=== PATIENT | female | born 1935 | race Caucasian/White ===

== ENCOUNTER 2016-10-19 03:14 | Inpatient (IN) | payer MEDICARE, OTHER ==
[2016-10-19] VITALS (11 sets, daily range): BP systolic 132–151; BP diastolic 71–85; PULSE 71–120; RESP 20–22; O2SAT 86–97
[~2016-10-19] VITALS: Ht 167.6 cm; Wt 60.9 kg
[2016-10-19] MEDS ORDERED: HYDR25TA4 PO (04:27)
--- NOTE | 2016-10-19 04:35 | NUR ---
Admission Note Pt admitted to [facility] AT 0355 from [facility], alert and orientedx3, states SOB, cough,nonproductive, denies any pain/N/V/chills, low grade fever 37.7 at [facility] per RN report, now resolved. BP145/85 HR90 RR20 SPO2 95% on O2 2l, T36.7. Moderately decreased lung sounds, coarse bilaterally, HR 85 regular, no murmur. Abdomen soft,non tender. Call light oriented to pt. Pt ambulated to BR void (Missing the container,need UA), mild weakness, denies dizziness,vertigo. Night MD Fischer paged about pt arrival, waiting for order.
[2016-10-19] MEDS ORDERED: Ondansetron 2 mg/mL 2 mL Inj IVPUSH PRN (04:40)
[2016-10-19] MEDS ORDERED: Alum-Mag Hydrox-Simeth 30 mL Suspension PO PRN (04:40)
[2016-10-19] MEDS ORDERED: Polyethylene Glycol (PEG) 17 Gm Powder PO PRN (04:40)
[2016-10-19] MEDS ORDERED: Albuterol-Ipratropium 3 mL Inhalation Solution NEB PRN (04:55)
[2016-10-19] MEDS ORDERED: Albuterol 2.5 mg/3 mL Inhalation Solution NEB PRN (04:55)
--- NOTE | 2016-10-19 05:23 | ABG ---
DateTimeAnalyzed 05:19:00 -_ pH ____7.385 - 7.350 7.450 pCO2 ___44.3__ -mmHg 35.0 45.0 pO2 ___65.6__ -mmHg 70.0 100 HCO3- ___25.9__ -mmol/L 22.0 26.0 ABE ____1.1__ -mmol/L -2.0 2.0 tHb ___12.7__ -g/dL 12.0 18.0 O2Hb ___89.8__ -% 95.0 COHb ____1.1__ -% 1.5 MetHb ____1.0__ -% 0.4 1.5 sO2 ___91.7__ -% FIO2 ___21.0__ -% Drawn By MD - Date/Time Notified____ 05:23:00 -_ Liter_Flow ____2.0__ -L/min Oxygen Device 1 __CANNULA - Notified By MD - Notified Whom __RN CORTÉS - B 756 -mmHg tO2 ___16.0__ -Vol% Cleve test _Positive -
[2016-10-19] MEDS: 0.9% Sodium Chloride 1,000 ML IV SCH ×3 (06:28→23:11)
--- NOTE | 2016-10-19 06:30 | HP ---
[address] [address] HISTORY AND PHYSICAL PATIENT: KAMRAN KRISHNAMURTHY : 1935 MR#: [id number] ADMIT: 10/19/2016 JOB ID: [id number] PRIMARY CARE PROVIDER: Sly Saunders MD. CHIEF COMPLAINT: Cough. HISTORY OF PRESENT ILLNESS: This is an 81-year-old female, who presented to [facility] Emergency Department with respiratory symptoms that started approximately two days ago. She has had a little bit of head congestion, cough intermittently productive of some sputum and also feels like she has had some fevers. She does note that she has a grandson and son-in-law who had similar symptoms but have improved. She denies any recent travel. She is a long-time smoker. Smokes a pack a day since about the age of 20. However, she does not use any inhalers at home. She denies any chest pain. She does admit to shortness of breath and wheezing. Denies any nausea, vomiting, or abdominal pain. She has had generalized malaise and weakness. Her evaluation in the emergency department at [facility] included a chest x-ray with a retrocardiac infiltrate. EKG, which is not present here, revealed sinus tachycardia with PACs, nonspecific T-wave changes in V2, intraventricular conduction delay noted. She was also found to have a little bit low sodium at 132. White count was noted to be 7.2. Influenza screen was pending at the time of this dictation but she was given a dose of Tamiflu initially. She was given oral azithromycin at [facility] also. The patient was saturating on room air at [facility] at about 85%. Does not use oxygen at home. PAST MEDICAL HISTORY: History of tobacco abuse, history of hypertension. MEDICATIONS UPON ADMISSION: Hydrochlorothiazide 25 mg p.o. daily. ALLERGIES: VALIUM makes the patient very drowsy. SOCIAL HISTORY: Lives with daughter. Smoking, one pack per day x65 years. Alcohol, none. FAMILY MEDICAL HISTORY: Denies any history of cancer or cardiac disease. REVIEW OF SYSTEMS: The patient denies any urinary frequency or burning. All other review of systems are reviewed and are negative except for as in HPI. PHYSICAL EXAMINATION: Temperature 36.8, heart rate 88, respiratory rate 20, blood pressure 145/85, 2 L nasal cannula, O2 sat 94%. Constitutional: Elderly woman who appears short of breath. Head is normocephalic, atraumatic. Eyes: PERRLADC, EOMI. Mouth: No lesions. Neck: No adenopathy. Carotids 2+/4, without bruits. Chest reveals some scant expiratory wheezes. Cor: Regular rate and rhythm, S1, S2, without murmur. Abdomen is soft, nontender. Bowel sounds present. Extremity exam reveals no pedal edema. Skin reveals no rashes. Psych: Mood and affect are appropriate. Neuro: Alert and oriented x3. Motor and sensory are intact bilaterally. LABORATORIES: As above. Also, to include sodium 132, potassium 3.4, chloride 93, glucose 124, bicarb 27, BUN 16, creatinine 0.70, calculated GFR is 82. Total protein is 7.9, albumin 3.9, calcium 9.2, total bili 0.4, alkaline phosphatase 78, ALT 25, AST 35. BNP 192. Urine dip reveals 3+ protein, 2+ blood, trace ketones, RBC 6-9, specific gravity 1.019, pH 6.0, negative leukocyte esterase, negative nitrites, negative glucose. WBC 7.2, hematocrit 39.2, platelets 205, with 84% polys and 9% lymphs. Lactic acid is 1.1. ASSESSMENT AND PLAN: 1. Chronic obstructive pulmonary disease exacerbation,acute, present on admit. Will place on p.o. prednisone, along with DuoNeb q.4 h. and albuterol p.r.n. 2. Retrocardiac pneumonia, acute , CAP,present on admit. Check sputum studies. Check PCR respiratory screen. Place in droplet precautions. Initiate IV Rocephin and IV azithromycin for possible community-acquired pneumonia. 3. Hypertension.,chronic,present on admit. Will monitor blood pressure. Keep off her hydrochlorothiazide for now. 4. Tobacco abuse,chronic,present on admit.. Will place on nicotine patch 20 mg topically daily. 5. Deep venous thrombosis prophylaxis. Will place on subcu Lovenox prophylactic. 6. Code status. Did discuss with patient and wishes FULL CODE. TIME SPENT: 60 minutes. MTDD
--- NOTE | 2016-10-19 07:05 | NUR ---
Azithromycin Pt took Azithromycin 500mg po at 0254 at [facility] per RN report at [facility]. Night resident Aaliyah notified, skip Azithromycin scheduled 0830 10/19/2015 per MD. Report given to day shift RN.
--- NOTE | 2016-10-19 08:15 | NUR ---
Off unit Pt off unit to XR, [employer] notified. Addendum: 10/19/16 at 0909 by BONNIE BEGUM RN Pt back on unit at 0930, [employer] notified.
[2016-10-19] MEDS: cefTRIAXone Inj 2,000 MG in IV Premix 1 EACH IV SCH (08:38)
--- NOTE | 2016-10-19 08:54 | DRSVH ---
PROCEDURE: X-RAY CHEST, TWO VIEWS ([id number]) INDICATIONS: cough TECHNIQUE: 2 views of the chest were acquired. COMPARISON: None. FINDINGS: Surgical changes and devices: None. Lungs and pleura: No pleural effusions or pneumothorax. Lungs are clear. Lungs appear hyperinflate d suggesting chronic obstructive physiology. Diffuse scarring/atelectasis Mediastinum: Mediastinal contours are normal. Heart size is normal. Bones and chest wall: No suspicious bony abnormalities. Soft tissues appear unremarkable. IMPRESSION: No acute consolidation. Hyperinflated lungs suggesting chronic obstructive physiology. Diffuse scarring Dictated by: Rico Castañeda M.D. on 10/19/2016 at 8:52 Approved by: Rico Castañeda M.D. on 10/19/2016 at 8:52
[2016-10-19] MEDS: Albuterol-Ipratropium 3 mL Inhalation Solution NEB SCH ×4 (08:55→20:41)
[2016-10-19 09:05] LABS: Magnesium 1.4 mg/dL (1.6-2.6); Phosphorus 3.7 mg/dL (2.5-4.9)
[2016-10-19] MEDS: Azithromycin Inj 500 MG in Dextrose 5% w/Vial Mate 250 ML IV SCH (09:28)
[2016-10-19] MEDS ORDERED: Magnesium Sulf 2 Gm/50mL Water 2 GM in IV Premix 1 EACH IV ONE (10:05)
[2016-10-19] MEDS ORDERED: Potassium Chloride Inj 20 MEQ in Dextrose 5% 250 ML IV ONE (10:05)
[2016-10-19] MEDS: predniSONE 20 mg Tablet PO SCH (11:27)
--- NOTE | 2016-10-19 17:41 | NUR ---
Activity/precautions Pt frequently self transfering this shift, dtr at bedside and alerting staff to pt's needs. Frequently reminding pt to call for assist. Pt on droplet precautions for (+) parainfluenza. Sputum sample still needed. Bed in lowest, locked position and call light in reach.
[2016-10-20] VITALS (8 sets, daily range): BP systolic 136–168; BP diastolic 70–91; PULSE 70–93; RESP 18–20; O2SAT 89–100
--- NOTE | 2016-10-20 00:29 | NUR ---
Flu Vaccine Pt currently has respiratory infection, Parainfluenza (+), not a candidate for flu vaccine, a non urgent communication sheet left in front of pt chart to verify with MD whether to give pt flu vaccine.
[2016-10-20] MEDS: Albuterol-Ipratropium 3 mL Inhalation Solution NEB SCH ×3 (01:41→07:27)
--- NOTE | 2016-10-20 06:50 | NUR ---
SOB SOB improved per pt,denies SOB at rest, has some exertional dyspnea getting up to BSC,desat to 87 when pt remove O2,recovers and SPO2 back to 91-97% on O2 2l with rest. BUNDLE PERSON monitoring. Stuffed nose and mouth breather,use oximask. Occasional nonproductive cough, unable to get sputum sample.
[2016-10-20 07:20] LABS: Platelet Count 202 bil/L (150-400)
[2016-10-20 07:35] LABS: Magnesium 1.8 mg/dL (1.6-2.6); Phosphorus 2.5 mg/dL (2.5-4.9)
[2016-10-20 07:50] LABS: BASOPHILS % (AUTO) 0 % (0-3); EOSINOPHILS % (AUTO) 2 % (0-5); MONOCYTES % (AUTO) 9 % (4-12); NEUTROPHILS % (AUTO) 54 % (40-74)
[2016-10-20] MEDS: Azithromycin Inj 500 MG in Dextrose 5% w/Vial Mate 250 ML IV SCH (07:54)
[2016-10-20] MEDS: predniSONE 20 mg Tablet PO SCH (07:54)
--- NOTE | 2016-10-20 08:53 | NUR ---
Social Work: Initial Assessment Data: Pt is an 81 y/o female admitted for pneumonia vs flu. Pt's PCP is Dr Saunders, pt's insurance is Medicare with [employer]. EMR reviewed. CLAMMER met with pt and son at bedside, role explained. Pt states that she lives with her daughter and her family in a single story home where she uses no DME but owns a walker. Pt states that she drives in day light and has no history of HH or SNF, no LTC or VA benefits, and is not a caregiver. CLAMMER contact info and plan written on board. No d/c planning needs anticipated at this time. CLAMMER will continue to follow if needs arise. Assessment: Pt who is independent at baseline. Plan: Pt will d/c home via POV with daughter when medically stable. No d/c planning needs anticipated at this time. CLAMMER will continue to follow if needs arise. BONNIE Frazier Addendum: 10/20/16 at 0855 by HELEN RIDDLE Amended: Links added.
[2016-10-20] MEDS: cefTRIAXone Inj 2,000 MG in IV Premix 1 EACH IV SCH (09:20)
[2016-10-20] MEDS ORDERED: PRED-508 PO (09:33)
[2016-10-20] MEDS ORDERED: AZIT500T5 PO (09:33)
--- NOTE | 2016-10-20 09:38 | PCM.DIMED ---
Discharge Instructions Date of Service Oct 20, 2016 Dates of Hospitalization Oct 19, 2016 at 03:50 Discharge Diagnosis Discharge Diagnosis URI secondary to parainfluenza3 COPD exacerbation Medication Instructions please use combivent inhaler every 2-4hours as needed for difficulty of breathing please finish prednisone for four more days Please take azithromycin for four more days Diet No restrictions Activity No restrictions Call your provider Shortness of breath Patient Instructions You were hospitalized with difficulty of breathing, possibly COPD flare with common cold. Please follow medicine instruction as above Please set up appointment with new PCP, pulmonary referral given COPD lungs Follow-up plan Please find out new PCP, follow up in 2weeks Follow-up with PCP in: 2 weeks Juan Machado MD Oct 20, 2016 09:38
[2016-10-20] MEDS ORDERED: IPRA4AER IH (09:40)
--- NOTE | 2016-10-20 11:34 | NUR ---
Social Work: Discharge Data: Pt is on day 1 of hospitalization. EMR reviewed, d/c orders are in. No d/c planning needs. [employer] CAMERA OPERATOR will continue to follow if needs arise. Assessment: Pt who is independent at baseline. Plan: Pt will d/c home via POV with daughter today. No d/c planning needs. OPT[employer] EFFECT[employer] CAMERA OPERATOR will continue to follow if needs arise. BONNIE Frazier
--- NOTE | 2016-10-20 11:50 | NUR ---
DISCHARGE Pt discharged home at 1120, accompanied off unit in w/c by SPRINKLER FITTER and dtr. Pt A&O, VSS, afebrile and denies any pain and in no apparent distress. IV dc'd intact, all belongings returned. All instructions for diet, activity, medications, prescriptions and follow up reviewed with patient who reports understanding. Dtr given information for numbers to arrange a possible PCP for pt as well as pulmonology.
--- NOTE | 2016-10-20 16:26 | PCM.DC.MED ---
Discharge Summary Date of Service Oct 20, 2016 Dates of Hospitalization Date of Hospital Admission Oct 19, 2016 at 03:50 Date of Discharge: Oct 20, 2016 Providers: Admitting Physician: Davida Fischer MD Primary Care Physician: Sly Saunders MD Attending Physician: Davida Fischer MD Diagnosis at Time of Discharge Diagnosis at Time of Discharge URI secondary to parainfluenza3 COPD exacerbation HTN Procedures XRay, CTs & MRIs PROCEDURE: X-RAY CHEST, TWO VIEWS ([id number]) INDICATIONS: cough TECHNIQUE: 2 views of the chest were acquired. COMPARISON: None. FINDINGS: Surgical changes and devices: None. Lungs and pleura: No pleural effusions or pneumothorax. Lungs are clear. Lungs appear hyperinflated suggesting chronic obstructive physiology. Diffuse scarring/atelectasis Mediastinum: Mediastinal contours are normal. Heart size is normal. Bones and chest wall: No suspicious bony abnormalities. Soft tissues appear unremarkable. IMPRESSION: No acute consolidation. Hyperinflated lungs suggesting chronic obstructive physiology. Diffuse scarring Dictated by: Rico Castañeda M.D. on 10/19/2016 at 8:52 Approved by: Rico Castañeda M.D. on 10/19/2016 at 8:52 Brief History H&P performed by Dr. HORTON IST Y on October 19 This is an 81-year-old female, who presented to [facility] Emergency Department with respiratory symptoms that started approximately two days ago. She has had a little bit of head congestion, cough intermittently productive of some sputum and also feels like she has had some fevers. She does note that she has a grandson and son-in-law who had similar symptoms but have improved. She denies any recent travel. She is a long-time smoker. Smokes a pack a day since about the age of 20. However, she does not use any inhalers at home. She denies any chest pain. She does admit to shortness of breath and wheezing. Denies any nausea, vomiting, or abdominal pain. She has had generalized malaise and weakness. Her evaluation in the emergency department at [facility] included a chest x-ray with a retrocardiac infiltrate. EKG, which is not present here, revealed sinus tachycardia with PACs, nonspecific T-wave changes in V2, intraventricular conduction delay noted. She was also found to have a little bit low sodium at 132. White count was noted to be 7.2. Influenza screen was pending at the time of this dictation but she was given a dose of Tamiflu initially. She was given oral azithromycin at [facility] also. The patient was saturating on room air at [facility] at about 85%. Does not use oxygen at home. Hospital Course Acute COPD exacerbation, patient is longtime heavy smoker, x-ray showed hyperinflated lungs, strongly suggestive of underlying COPD(no official dx) .Symptoms quickly improved with frequent nebulizer treatment and steroid. Respiratory PCR showed parainfluenza3, which probably precipitated patient's symptoms. Patient remained afebrile, serial white count and procalcitonins were normal. However, given COPD, pt was given azithromycin as well, plan was to continue prednisone/Z-robyn to finish 5days, pt was also informed about pulmonary follow up and PFT in the future. Pt was able to ambulate on room air without any symptoms, deemed safe for discharge. Patient was asked to follow up new primary care physician in [facility] close to where she lives HTN, continued HCTZ, BP stable Exam Vital Signs (Last) Date Time Temp Pulse Resp B/P Pulse Ox O2 Delivery O2 Flow Rate FiO2 10/20/16 10:11 89 10/20/16 09:54 36.5 18 168/91 91 Nasal Cannula 2.00 Exam NAD, comfortably laying down on the bed no JVD, MMM, no LAD RRR, nl s1, s2 no mrg Bilateral scattered crackles S,ND,NT,normoactive BS+ warm, no edema, pulses 2/2 Test 10/19/16 08:25 10/19/16 10:33 10/20/16 06:35 Hold Urine Received (Received) Troponin T 0.010ug/L (0.0-0.011) White Blood Count 7.6th/mm3 (3.8-10.1) Red Blood Count 3.31mil/mm3 (3.90-5.20) Hemoglobin 11.9g/dL (12.0-15.6) Hematocrit 35.1% (35.0-46.0) Mean Corpuscular Volume 106.0fL (81-100) Mean Corpuscular Hemoglobin 36.0pg (27.0-35.0) Mean Corpuscular Hemoglobin Concent 33.9% (32.0-37.0) Red Cell Distribution Width 13.2% (12.3-15.4) Platelet Count 202bil/L (150-400) Neutrophils (%) (Auto) 54% (40-74) Lymphocytes (%) (Auto) 17% (14-46) Monocytes (%) (Auto) 9% (4-12) Eosinophils (%) (Auto) 2% (0-5) Basophils (%) (Auto) 0% (0-3) Band Neutrophils % 18% (1-5) Sodium Level 143mEq/L (134-144) Potassium Level 3.6mEq/L (3.5-5.2) Chloride Level 103mEq/L (97-108) Carbon Dioxide Level 27mmol/L (18-29) Blood Urea Nitrogen 16mg/dL (8-27) Creatinine 0.46mg/dL (0.57-1.00) Estimat Glomerular Filtration Rate 187mL/min (>59) Glucose Level 94mg/dL (60-99) Calcium Level 9.1mg/dL (8.5-10.1) Phosphorus Level 2.5mg/dL (2.5-4.9) Magnesium Level 1.8mg/dL (1.6-2.6) Total Bilirubin 0.2mg/dL (0.0-1.2) Aspartate Amino Transf (AST/SGOT) 51U/L (0-50) Alanine Aminotransferase (ALT/SGPT) 24U/L (0-32) Alkaline Phosphatase 57U/L (25-165) Total Protein 6.5g/dL (6.4-8.4) Albumin 3.6g/dL (3.4-5.0) Procalcitonin < 0.05ng/mL (See Comment) Discharge Medications Discharge Medications Azithromycin (Azithromycin) 500 Mg Tablet 500 MG PO DAILY Prescribed by: JUAN RÍOS MD Hydrochlorothiazide (Hydrochlorothiazide) 25 Mg Tablet 25 MG PO DAILY (Reported ) Prednisone (Deltasone) 20 Mg Tablet 40 MG PO DAILY Prescribed by: JUAN RÍOS MD As needed Albuterol/Ipratropium (Combivent Respimat Inhal [place]) 120 Spr/4 Gm Inhaler 1 PUFF IH QID PRN PRN For Shortness of Breath Prescribed by: JUAN RÍOS MD Additional med instructions please use combivent inhaler every 2-4hours as needed for difficulty of breathing please finish prednisone for four more days Please take azithromycin for four more days Followup Plan Disposition: Home Follow-up plan Please find out new PCP, follow up in 2weeks Discharge Diet: No restrictions Discharge Activity: No restrictions Patient Instructions You were hospitalized with difficulty of breathing, possibly COPD flare with common cold. Please follow medicine instruction as above Please set up appointment with new PCP, pulmonary referral given COPD lungs Follow-up with PCP in: 2 weeks Time spent 60 minute Juan Ríos MD Oct 20, 2016 16:26
== END 2016-10-20 11:30 | disposition home or self-care (01) | DRG 192 ==
LOC: MPC 03:50
PROVIDERS: ADMIT Specialist; ATTEND Specialist
PROC: 4A033R1 Measurement of Arterial Saturation, Peripheral, Percutaneous Approach (ICD-10-PCS; principal; 2016-10-19)
DX: J44.1 Chronic obstructive pulmonary disease with (acute) exacerbation (principal); J10.1 Influenza due to other identified influenza virus with other respiratory manifestations; I10 Essential (primary) hypertension; F17.210 Nicotine dependence, cigarettes, uncomplicated